=== PATIENT | female | born 1950 | race Caucasian/White ===

== ENCOUNTER 2021-09-04 21:18 | Inpatient (IN) ==
[2021-09-04 22:41] LABS: BUN/Creatinine Ratio 8 (6-26); Blood Urea Nitrogen 6 mg/dL (8-23); Calcium 9.3 mg/dL (8.6-10.3); Carbon Dioxide 24 mEq/L (23-29); Chloride 98 mEq/L (98-107); Glucose 155 mg/dL (70-105); Osmolality,Calculated 283 (280-300); Sodium 136 mEq/L (136-145); eGFR For African Americans > 60 (> 60); eGFR For Non-African Americans > 60 (> 60)
[2021-09-04 22:42] LABS: Troponin I 0.03 ng/mL (< 0.04)
[2021-09-04] MEDS ORDERED: methylPREDNISolone 125 MG/2 ML VIAL IVP ONE (23:12)
[2021-09-04] MEDS ORDERED: Ipratropium/Albuterol Neb 3 ML IH ONE (23:12)
[2021-09-04 23:26] LABS: Basophils % 0.3 %; Hematocrit 42.1 % (35.3-44.9); Hemoglobin 13.7 g/dL (11.5-15.4); Immature Granulocytes % 0.6 % (0-4); Lymphocytes # 0.9 K/mcL (0.6-4.6); Lymphocytes % 6.4 %; Mean Corpuscular HGB Conc 32.5 g/dL (31.6-35.5); Mean Corpuscular Hemoglobin 28.9 pg (28.0-33.3); Mean Corpuscular Volume 88.8 fL (83.0-100.0); Mean Platelet Volume 10.7 fL (9.4-12.4); Monocytes % 7.4 %; Platelet Count 466 K/mcL (140-400); Red Blood Count 4.74 M/mcL (3.82-4.97); Segmented Neutrophils % 85.3 %; White Blood Count 14.1 K/mcL (4.3-11.1)
[2021-09-04] MEDS: Albuterol 2.5 MG/3 ML NEBULIZER IH ONE (23:42)
[2021-09-04 23:46] LABS: Influenza A PCR Negative (Negative); Influenza B PCR Negative (Negative); Resp. Syncytial Virus PCR Negative (Negative)
[2021-09-04 23:49] LABS: SARS-CoV-2 by PCR (In House) Negative (Negative)
[2021-09-05] MEDS ORDERED: Albuterol 2.5 MG/3 ML NEBULIZER IH ONE (01:15)
[2021-09-05] MEDS ORDERED: Azithromycin 250 MG TABLET PO ONE (01:17)
[2021-09-05] MEDS ORDERED: cefTRIAXone 1,000 MG in Water for inj. (sterile) 10 ML IVP ONE (01:17)
[2021-09-05] MEDS ORDERED: Furosemide 20 MG/2 ML VIAL IVP ONE (02:14)
[2021-09-05] MEDS ORDERED: Acetaminophen 325 MG TABLET PO PRN (02:18)
[2021-09-05] MEDS ORDERED: Melatonin 3 MG TABLET PO PRN (02:18)
[2021-09-05] MEDS ORDERED: Naloxone 0.4 MG/ML INJ IVP PRN (02:18)
[2021-09-05] MEDS ORDERED: Ondansetron 4 MG/2 ML VIAL IVP PRN (02:18)
[2021-09-05] MEDS ORDERED: *HR* HYDROcodone/Acet 5/325 mg TABLET PO PRN (02:18)
[2021-09-05] MEDS: Albuterol 2.5 MG/3 ML NEBULIZER IH ONE (03:36)
[2021-09-05] MEDS: Ipratropium/Albuterol Neb 3 ML IH SCH ×5 (04:22→20:55)
[2021-09-05 04:55] LABS: Basophils % 0.2 %; Hematocrit 36.6 % (35.3-44.9); Hemoglobin 11.8 g/dL (11.5-15.4); Immature Granulocytes % 0.6 % (0-4); Lymphocytes # 0.3 K/mcL (0.6-4.6); Lymphocytes % 2.6 %; Mean Corpuscular HGB Conc 32.2 g/dL (31.6-35.5); Mean Corpuscular Hemoglobin 28.6 pg (28.0-33.3); Mean Corpuscular Volume 88.6 fL (83.0-100.0); Mean Platelet Volume 10.2 fL (9.4-12.4); Monocytes # 0.1 K/mcL (0.0-1.3); Neutrophils # 12.5 K/mcL (1.6-8.9); Platelet Count 403 K/mcL (140-400); Red Blood Count 4.13 M/mcL (3.82-4.97); Red Cell Distribution Width 12.1 % (11.5-14.5); Segmented Neutrophils % 95.6 %; White Blood Count 13.1 K/mcL (4.3-11.1)
[2021-09-05 04:57] LABS: VBG HCO3 24 mEq/L (21-27); VBG PCO2 35 mmHg (41-51); VBG PH 7.44 pH Units (7.32-7.42); VBG PO2 86 mmHg (25-50)
[2021-09-05 05:16] LABS: Alanine Aminotransferase 52 Units/L (7-52); Albumin 3.7 g/dL (3.5-5.7); Alkaline Phosphatase 126 Units/L (34-104); Aspartate Amino Transferase 48 Units/L (13-39); BUN/Creatinine Ratio 8 (6-26); Bilirubin,Total 0.6 mg/dL (0.3-1.0); Blood Urea Nitrogen 7 mg/dL (8-23); Calcium 8.8 mg/dL (8.6-10.3); Carbon Dioxide 24 mEq/L (23-29); Chloride 100 mEq/L (98-107); Globulin 3.6 g/dL (2.4-3.5); Glucose 283 mg/dL (70-105); Magnesium 2.1 mg/dL (1.6-2.6); Osmolality,Calculated 284 (280-300); Phosphorous 2.4 mg/dL (2.7-4.5); Sodium 133 mEq/L (136-145); Total Protein 7.3 g/dL (6.4-8.9); Troponin I 0.03 ng/mL (< 0.04); eGFR For African Americans > 60 (> 60); eGFR For Non-African Americans > 60 (> 60)
[2021-09-05] MEDS: methylPREDNISolone 125 MG/2 ML VIAL IVP SCH ×3 (05:25→20:13)
[2021-09-05] MEDS ORDERED: *HR* LORazepam 0.5 MG TABLET PO ONE (05:50)
[2021-09-05 05:52] LABS: Platelet Estimate Normal (Normal)
[2021-09-05] MEDS ORDERED: Isovue-370 500 ML BOTTLE IVP ONE (05:57)
[2021-09-05] MEDS ORDERED: methylPREDNISolone 125 MG/2 ML VIAL IVP SCH (06:00)
[2021-09-05] MEDS: *HR* Heparin 5,000 UNIT/ML VIAL SQ SCH ×3 (06:15→20:13)
[2021-09-05] MEDS ORDERED: Ringers Solution, Lactated 500 ML IVC ONE (06:30)
[2021-09-05 06:46] LABS: ABG Base Excess 0 mEq/L (-2 to 3); ABG HCO3 24 mEq/L (21-27); ABG Oxygen Saturation 99 % (95-98); ABG PCO2 34 mmHg (35-45); ABG PH 7.46 pH Units (7.32-7.45); ABG PO2 108 mmHg (85-104); ABG TCO2 25 mEq/L (20-26)
[2021-09-05 07:47] LABS: Adenovirus Not Detected (Not Detect); Bordetella Pertussis Not Detected (Not Detect); Chlamydophila pneumoniae Not Detected (Not Detect); Coronavirus 229E Not Detected (Not Detect); Coronavirus HKU1 Not Detected (Not Detect); Coronavirus NL63 Not Detected (Not Detect); Coronavirus OC43 Not Detected (Not Detect); Human Metapneumovirus Not Detected (Not Detect); Human Rhinovirus/Enterovirus Not Detected (Not Detect); Influenza A Subtype 2009 H1 Not Detected (Not Detect); Influenza B Not Detected (Not Detect); Mycoplasma pneumoniae Not Detected (Not Detect); Parainfluenza Virus 1 Not Detected (Not Detect); Parainfluenza Virus 2 Not Detected (Not Detect); Parainfluenza Virus 3 Not Detected (Not Detect); Parainfluenza Virus 4 Not Detected (Not Detect); Respiratory Syncytial Virus Not Detected (Not Detect); SARS-CoV-2 Not Detected (Not Detect)
[2021-09-05] MEDS: Budesonide/Formoterol 160/4.5 1 PUFF INH IH SCH ×2 (08:10→20:55)
[2021-09-05] MEDS: Lactobacillus 1 EACH CAP.SPRINK PO SCH ×2 (08:27→20:13)
[2021-09-05] MEDS: Fluticasone Propionate Nasal 50 MCG/SPRAY BOTTLE NS SCH (08:27)
[2021-09-05] MEDS: Chlorhexidine Rinse 15 ML MOUTHWASH MM SCH ×2 (08:27→20:13)
[2021-09-05] MEDS: Multivit/Ca/Min/Fe/FA 1 TAB TABLET PO SCH (08:27)
[2021-09-05] MEDS: Artificial Tears SOLN 15 ML BOTTLE BOTH EYES SCH ×4 (08:36→20:12)
[2021-09-05] MEDS: Insulin LISPRO 300 UNITS/3 ML VIAL SUBQ SCH ×3 (08:44→18:09)
[2021-09-05] MEDS ORDERED: amLODIPine 5 MG TABLET PO SCH (09:00)
[2021-09-05 10:26] LABS: Estimated Average Glucose 131 mg/dl; Hemoglobin A1C 6.2 %
[2021-09-05] MEDS: Saline Nasal Spray 44 ML BOTTLE NS SCH ×4 (10:39→20:13)
[2021-09-05] MEDS: Saliva Stimulant 44.3ml BOTTLE PO SCH ×4 (10:39→20:12)
[2021-09-06] MEDS: Ipratropium/Albuterol Neb 3 ML IH SCH ×7 (00:08→23:28)
[2021-09-06] MEDS: methylPREDNISolone 125 MG/2 ML VIAL IVP SCH ×3 (05:14→20:05)
[2021-09-06] MEDS: *HR* Heparin 5,000 UNIT/ML VIAL SQ SCH ×3 (05:14→20:06)
[2021-09-06 07:04] LABS: Hematocrit 34.6 % (35.3-44.9); Mean Corpuscular HGB Conc 32.4 g/dL (31.6-35.5); Mean Corpuscular Hemoglobin 28.5 pg (28.0-33.3); Mean Platelet Volume 10.9 fL (9.4-12.4); Platelet Count 330 K/mcL (140-400); Red Blood Count 3.93 M/mcL (3.82-4.97); Red Cell Distribution Width 12.5 % (11.5-14.5)
[2021-09-06 07:06] LABS: VBG HCO3 25 mEq/L (21-27); VBG PCO2 30 mmHg (41-51); VBG PH 7.52 pH Units (7.32-7.42); VBG PO2 193 mmHg (25-50)
[2021-09-06 07:34] LABS: BUN/Creatinine Ratio 23 (6-26); Blood Urea Nitrogen 16 mg/dL (8-23); Calcium 9.1 mg/dL (8.6-10.3); Carbon Dioxide 24 mEq/L (23-29); Chloride 108 mEq/L (98-107); Glucose 185 mg/dL (70-105); Magnesium 2.3 mg/dL (1.6-2.6); Osmolality,Calculated 288 (280-300); Potassium 4.1 mEq/L (3.5-5.1); Sodium 136 mEq/L (136-145); eGFR For African Americans > 60 (> 60); eGFR For Non-African Americans > 60 (> 60)
[2021-09-06 07:52] LABS: Hemoglobin 11.2 g/dL (11.5-15.4); White Blood Count 26.5 K/mcL (4.3-11.1)
[2021-09-06 07:58] LABS: Lymphocytes # 0.5 K/mcL (0.6-4.6); Platelet Estimate Normal (Normal)
[2021-09-06] MEDS: Insulin LISPRO 300 UNITS/3 ML VIAL SUBQ SCH ×3 (09:20→18:14)
[2021-09-06] MEDS: Saline Nasal Spray 44 ML BOTTLE NS SCH ×4 (09:23→20:05)
[2021-09-06] MEDS: Saliva Stimulant 44.3ml BOTTLE PO SCH ×4 (09:23→20:04)
[2021-09-06] MEDS: Artificial Tears SOLN 15 ML BOTTLE BOTH EYES SCH ×4 (09:23→20:05)
[2021-09-06] MEDS: Lactobacillus 1 EACH CAP.SPRINK PO SCH ×2 (09:24→20:05)
[2021-09-06] MEDS: Azithromycin 250 MG TABLET PO SCH (09:24)
[2021-09-06] MEDS: Multivit/Ca/Min/Fe/FA 1 TAB TABLET PO SCH (09:24)
[2021-09-06] MEDS: Chlorhexidine Rinse 15 ML MOUTHWASH MM SCH ×2 (09:24→20:05)
[2021-09-06] MEDS: amLODIPine 5 MG TABLET PO SCH (09:24)
[2021-09-06] MEDS: Fluticasone Propionate Nasal 50 MCG/SPRAY BOTTLE NS SCH (09:24)
[2021-09-06] MEDS: cefTRIAXone 1,000 MG in 0.9 % Sodium Chloride Mini Bag 100 ML IVPB SCH (09:25)
[2021-09-06] MEDS: Budesonide/Formoterol 160/4.5 1 PUFF INH IH SCH ×2 (10:30→20:24)
[2021-09-07 02:06] LABS: VBG HCO3 22 mEq/L (21-27); VBG PCO2 24 mmHg (41-51); VBG PH 7.57 pH Units (7.32-7.42); VBG PO2 189 mmHg (25-50)
[2021-09-07 02:09] LABS: Basophils % 0.2 %; Monocytes % 1.4 %
[2021-09-07 02:10] LABS: Basophils # 0.1 K/mcL (0.0-0.2); Hematocrit 34.2 % (35.3-44.9); Immature Granulocytes % 1.3 % (0-4); Lymphocytes # 0.7 K/mcL (0.6-4.6); Lymphocytes % 2.8 %; Mean Corpuscular HGB Conc 32.2 g/dL (31.6-35.5); Mean Corpuscular Hemoglobin 29.4 pg (28.0-33.3); Mean Corpuscular Volume 91.4 fL (83.0-100.0); Mean Platelet Volume 10.1 fL (9.4-12.4); Monocytes # 0.4 K/mcL (0.0-1.3); Neutrophils # 24.7 K/mcL (1.6-8.9); Platelet Count 431 K/mcL (140-400); Red Blood Count 3.74 M/mcL (3.82-4.97); Red Cell Distribution Width 12.9 % (11.5-14.5); Segmented Neutrophils % 94.3 %; White Blood Count 26.2 K/mcL (4.3-11.1)
[2021-09-07 02:23] LABS: BUN/Creatinine Ratio 30 (6-26); Blood Urea Nitrogen 21 mg/dL (8-23); Calcium 8.8 mg/dL (8.6-10.3); Carbon Dioxide 24 mEq/L (23-29); Chloride 105 mEq/L (98-107); Glucose 180 mg/dL (70-105); Magnesium 2.3 mg/dL (1.6-2.6); Osmolality,Calculated 294 (280-300); Sodium 138 mEq/L (136-145); eGFR For African Americans > 60 (> 60); eGFR For Non-African Americans > 60 (> 60)
[2021-09-07] MEDS: Ipratropium/Albuterol Neb 3 ML IH SCH ×6 (04:08→23:40)
[2021-09-07] MEDS: methylPREDNISolone 125 MG/2 ML VIAL IVP SCH (05:14)
[2021-09-07] MEDS: *HR* Heparin 5,000 UNIT/ML VIAL SQ SCH ×3 (05:14→21:51)
[2021-09-07] MEDS: Budesonide/Formoterol 160/4.5 1 PUFF INH IH SCH ×2 (08:13→20:36)
[2021-09-07] MEDS: Insulin LISPRO 300 UNITS/3 ML VIAL SUBQ SCH ×3 (08:23→16:55)
[2021-09-07] MEDS: Artificial Tears SOLN 15 ML BOTTLE BOTH EYES SCH ×4 (08:23→19:45)
[2021-09-07] MEDS: Saline Nasal Spray 44 ML BOTTLE NS SCH ×4 (08:24→19:46)
[2021-09-07] MEDS: Chlorhexidine Rinse 15 ML MOUTHWASH MM SCH ×2 (08:24→21:52)
[2021-09-07] MEDS: Saliva Stimulant 44.3ml BOTTLE PO SCH ×4 (08:24→19:45)
[2021-09-07] MEDS: Fluticasone Propionate Nasal 50 MCG/SPRAY BOTTLE NS SCH (08:24)
[2021-09-07] MEDS: cefTRIAXone 1,000 MG in 0.9 % Sodium Chloride Mini Bag 100 ML IVPB SCH (08:25)
[2021-09-07] MEDS: Multivit/Ca/Min/Fe/FA 1 TAB TABLET PO SCH (08:25)
[2021-09-07] MEDS: Azithromycin 250 MG TABLET PO SCH (08:25)
[2021-09-07] MEDS: amLODIPine 5 MG TABLET PO SCH (08:25)
[2021-09-07] MEDS: Lactobacillus 1 EACH CAP.SPRINK PO SCH ×2 (08:25→21:52)
[2021-09-07] MEDS: MethylPREDNISolone 40 MG/ML VIAL IVP SCH ×2 (11:20→19:46)
[2021-09-08 01:50] LABS: Basophils # 0.1 K/mcL (0.0-0.2); Basophils % 0.3 %; Hematocrit 35.6 % (35.3-44.9); Hemoglobin 11.5 g/dL (11.5-15.4); Immature Granulocytes % 3.9 % (0-4); Lymphocytes # 0.7 K/mcL (0.6-4.6); Lymphocytes % 3.2 %; Mean Corpuscular HGB Conc 32.3 g/dL (31.6-35.5); Mean Corpuscular Hemoglobin 29.2 pg (28.0-33.3); Mean Corpuscular Volume 90.4 fL (83.0-100.0); Mean Platelet Volume 9.7 fL (9.4-12.4); Monocytes # 0.7 K/mcL (0.0-1.3); Monocytes % 2.9 %; Neutrophils # 20.8 K/mcL (1.6-8.9); Platelet Count 439 K/mcL (140-400); Red Blood Count 3.94 M/mcL (3.82-4.97); Red Cell Distribution Width 12.8 % (11.5-14.5); Segmented Neutrophils % 89.7 %; White Blood Count 23.2 K/mcL (4.3-11.1)
[2021-09-08 01:59] LABS: VBG HCO3 24 mEq/L (21-27); VBG PCO2 21 mmHg (41-51); VBG PH 7.65 pH Units (7.32-7.42); VBG PO2 196 mmHg (25-50)
[2021-09-08 03:04] LABS: BUN/Creatinine Ratio 29 (6-26); Blood Urea Nitrogen 18 mg/dL (8-23); Calcium 8.9 mg/dL (8.6-10.3); Carbon Dioxide 21 mEq/L (23-29); Chloride 104 mEq/L (98-107); Glucose 168 mg/dL (70-105); Osmolality,Calculated 294 (280-300); Potassium 4.3 mEq/L (3.5-5.1); Sodium 139 mEq/L (136-145); eGFR For African Americans > 60 (> 60); eGFR For Non-African Americans > 60 (> 60)
[2021-09-08] MEDS: MethylPREDNISolone 40 MG/ML VIAL IVP SCH (03:04)
[2021-09-08] MEDS: Ipratropium/Albuterol Neb 3 ML IH SCH ×5 (04:01→20:22)
[2021-09-08] MEDS: *HR* Heparin 5,000 UNIT/ML VIAL SQ SCH ×3 (05:35→21:43)
[2021-09-08] MEDS: Budesonide/Formoterol 160/4.5 1 PUFF INH IH SCH ×2 (08:24→20:22)
[2021-09-08] MEDS: Lactobacillus 1 EACH CAP.SPRINK PO SCH ×2 (08:38→21:42)
[2021-09-08] MEDS: Multivit/Ca/Min/Fe/FA 1 TAB TABLET PO SCH (08:38)
[2021-09-08] MEDS: amLODIPine 5 MG TABLET PO SCH (08:39)
[2021-09-08] MEDS: Azithromycin 250 MG TABLET PO SCH (08:39)
[2021-09-08] MEDS: cefTRIAXone 1,000 MG in 0.9 % Sodium Chloride Mini Bag 100 ML IVPB SCH (08:40)
[2021-09-08] MEDS: Insulin LISPRO 300 UNITS/3 ML VIAL SUBQ SCH ×3 (08:44→17:21)
[2021-09-08] MEDS: Fluticasone Propionate Nasal 50 MCG/SPRAY BOTTLE NS SCH (08:45)
[2021-09-08] MEDS: Saline Nasal Spray 44 ML BOTTLE NS SCH ×4 (08:45→21:40)
[2021-09-08] MEDS: Artificial Tears SOLN 15 ML BOTTLE BOTH EYES SCH ×4 (08:45→21:39)
[2021-09-08] MEDS: Saliva Stimulant 44.3ml BOTTLE PO SCH ×4 (08:45→21:39)
[2021-09-08] MEDS: Chlorhexidine Rinse 15 ML MOUTHWASH MM SCH ×2 (08:46→21:42)
[2021-09-08] MEDS ORDERED: MethylPREDNISolone 40 MG/ML VIAL IVP ONE (15:00)
[2021-09-09] MEDS: Ipratropium/Albuterol Neb 3 ML IH SCH ×5 (00:27→15:37)
[2021-09-09 05:42] LABS: Basophils # 0.1 K/mcL (0.0-0.2); Basophils % 0.6 %; Hematocrit 35.9 % (35.3-44.9); Hemoglobin 11.6 g/dL (11.5-15.4); Immature Granulocytes % 6.3 % (0-4); Lymphocytes # 2.4 K/mcL (0.6-4.6); Lymphocytes % 12.7 %; Mean Corpuscular HGB Conc 32.3 g/dL (31.6-35.5); Mean Corpuscular Hemoglobin 29.1 pg (28.0-33.3); Mean Platelet Volume 9.7 fL (9.4-12.4); Monocytes # 1.2 K/mcL (0.0-1.3); Monocytes % 6.3 %; Platelet Count 449 K/mcL (140-400); Red Blood Count 3.99 M/mcL (3.82-4.97); Red Cell Distribution Width 12.8 % (11.5-14.5); Segmented Neutrophils % 74.1 %; White Blood Count 18.9 K/mcL (4.3-11.1)
[2021-09-09 05:48] LABS: VBG HCO3 29 mEq/L (21-27); VBG PCO2 36 mmHg (41-51); VBG PH 7.51 pH Units (7.32-7.42); VBG PO2 143 mmHg (25-50)
[2021-09-09] MEDS: *HR* Heparin 5,000 UNIT/ML VIAL SQ SCH (05:56)
[2021-09-09 05:59] LABS: BUN/Creatinine Ratio 27 (6-26); Blood Urea Nitrogen 19 mg/dL (8-23); Calcium 8.6 mg/dL (8.6-10.3); Carbon Dioxide 28 mEq/L (23-29); Chloride 101 mEq/L (98-107); Glucose 104 mg/dL (70-105); Osmolality,Calculated 287 (280-300); Potassium 3.7 mEq/L (3.5-5.1); Sodium 137 mEq/L (136-145); eGFR For African Americans > 60 (> 60); eGFR For Non-African Americans > 60 (> 60)
[2021-09-09] MEDS: Budesonide/Formoterol 160/4.5 1 PUFF INH IH SCH (07:40)
[2021-09-09] MEDS: Insulin LISPRO 300 UNITS/3 ML VIAL SUBQ SCH ×2 (08:07→12:39)
[2021-09-09] MEDS: Artificial Tears SOLN 15 ML BOTTLE BOTH EYES SCH ×2 (08:08→12:40)
[2021-09-09] MEDS: Saliva Stimulant 44.3ml BOTTLE PO SCH ×2 (08:09→12:41)
[2021-09-09] MEDS: Chlorhexidine Rinse 15 ML MOUTHWASH MM SCH (08:09)
[2021-09-09] MEDS: Fluticasone Propionate Nasal 50 MCG/SPRAY BOTTLE NS SCH (08:09)
[2021-09-09] MEDS: cefTRIAXone 1,000 MG in 0.9 % Sodium Chloride Mini Bag 100 ML IVPB SCH (08:09)
[2021-09-09] MEDS: Azithromycin 250 MG TABLET PO SCH (08:10)
[2021-09-09] MEDS: Lactobacillus 1 EACH CAP.SPRINK PO SCH (08:10)
[2021-09-09] MEDS: Multivit/Ca/Min/Fe/FA 1 TAB TABLET PO SCH (08:10)
[2021-09-09] MEDS: Saline Nasal Spray 44 ML BOTTLE NS SCH ×2 (08:29→12:40)
[2021-09-09] MEDS: amLODIPine 5 MG TABLET PO SCH (08:31)
[2021-09-09] MEDS ORDERED: MethylPREDNISolone 40 MG/ML VIAL IVP SCH (09:00)
[2021-09-09 16:51] VITALS: BP 134/67; PULSE 103; TEMP 98; O2SAT 96
== END 2021-09-09 19:50 | disposition home or self-care (01) | DRG 720 ==
LOC: EMEROOARM 21:18 → 3ANU 21:18 → SUATTDRO 09-05 02:06 → 3ANU 09-05 02:44
PROVIDERS: ADMIT Internal Medicine; ATTEND Internal Medicine

== ENCOUNTER 2021-12-08 00:54 | Inpatient (IN) ==
[2021-12-08] MEDS ORDERED: Ibuprofen 800 MG TABLET PO ONE (02:13)
[2021-12-08 02:41] LABS: Basophils # 0.1 K/mcL (0.0-0.2); Basophils % 0.2 %; Hematocrit 38.6 % (35.3-44.9); Hemoglobin 12.9 g/dL (11.5-15.4); Immature Granulocytes % 1.1 % (0-4); Lymphocytes # 1.1 K/mcL (0.6-4.6); Mean Corpuscular HGB Conc 33.4 g/dL (31.6-35.5); Mean Corpuscular Hemoglobin 29.5 pg (28.0-33.3); Mean Corpuscular Volume 88.1 fL (83.0-100.0); Mean Platelet Volume 11.7 fL (9.4-12.4); Monocytes # 1.8 K/mcL (0.0-1.3); Monocytes % 8.5 %; Platelet Count 201 K/mcL (140-400); Red Blood Count 4.38 M/mcL (3.82-4.97); Red Cell Distribution Width 13.7 % (11.5-14.5); Segmented Neutrophils % 85.2 %; White Blood Count 21.2 K/mcL (4.3-11.1)
[2021-12-08] MEDS ORDERED: Azithromycin 500 MG in 0.9 % Sodium Chloride 250 ML IVPB ONE (02:43)
[2021-12-08] MEDS ORDERED: cefTRIAXone 1,000 MG in Water for inj. (sterile) 10 ML IVP ONE (02:43)
[2021-12-08 02:56] LABS: BUN/Creatinine Ratio 15 (6-26); Blood Urea Nitrogen 13 mg/dL (8-23); Calcium 9.7 mg/dL (8.6-10.3); Carbon Dioxide 24 mEq/L (23-29); Chloride 96 mEq/L (98-107); Glucose 95 mg/dL (70-105); Osmolality,Calculated 278 (280-300); Potassium 3.6 mEq/L (3.5-5.1); Sodium 134 mEq/L (136-145); eGFR For African Americans > 60 (> 60); eGFR For Non-African Americans > 60 (> 60)
[2021-12-08 02:59] LABS: Troponin I 0.06 ng/mL (< 0.04)
[2021-12-08] MEDS ORDERED: 0.9 % Sodium Chloride 1,000 ML IVC ONE (03:03)
[2021-12-08 03:33] LABS: Influenza A PCR Negative (Negative); Influenza B PCR Negative (Negative); Resp. Syncytial Virus PCR Negative (Negative)
[2021-12-08 03:34] LABS: SARS-CoV-2 by PCR (In House) Negative (Negative)
[2021-12-08 04:08] LABS: Bacteria,Urine Few per hpf (None-Few); Bilirubin,Urine Negative (Negative); Blood,Urine Small (Negative); Clarity,Urine Clear (Clear); Color,Urine Yellow (Yellow); Glucose,Urine (UA) Normal (Normal); Ketones,Urine 20 mg/dL (Negative); Leukocyte Esterase,Urine Negative (Negative); Mucus,Urine Few per lpf (None-Few); Nitrite,Urine Negative (Negative); Protein,Urine 200 mg/dL (Neg-Trace); Specific Gravity,Urine 1.028 (1.010-1.025); Squamous Epithelial Cell,Urine Few per hpf (None-Few)
[2021-12-08] MEDS ORDERED: Perflutren Lipid Microsphere 1.3 ML in 0.9 % Sodium Chloride 8.7 ML IVP PRN (04:28)
[2021-12-08] MEDS ORDERED: Naloxone 0.4 MG/ML INJ IVP PRN (04:40)
[2021-12-08] MEDS: Aspirin 325 MG TABLET PO ONE ×2 (04:51→05:00)
[2021-12-08] MEDS: *HR* Heparin 5,000 UNIT/ML VIAL SQ SCH ×3 (05:42→20:41)
[2021-12-08] MEDS: 0.9 % Sodium Chloride 1,000 ML IVC SCH ×2 (05:43→15:40)
[2021-12-08] MEDS: Levalbuterol Neb 1.25 MG/3 ML IH SCH ×4 (05:55→20:01)
[2021-12-08 06:01] LABS: Troponin I < 0.03 ng/mL (< 0.04)
[2021-12-08] MEDS: Acetaminophen 325 MG TABLET PO PRN ×2 (06:09→18:08)
[2021-12-08] MEDS ORDERED: Nitroglycerin 0.4 MG TAB.SUBL SL PRN (06:19)
[2021-12-08] MEDS: Aspirin Enteric Coated 81 MG Tablet PO SCH (08:48)
[2021-12-08] MEDS: amLODIPine 5 MG TABLET PO SCH (08:51)
[2021-12-08 09:05] LABS: Magnesium 1.9 mg/dL (1.6-2.6); Phosphorous 3.4 mg/dL (2.7-4.5)
[2021-12-08] MEDS ORDERED: methylPREDNISolone 125 MG/2 ML VIAL IVP ONE (18:05)
[2021-12-09] MEDS: Levalbuterol Neb 1.25 MG/3 ML IH SCH ×4 (04:05→19:44)
[2021-12-09] MEDS: cefTRIAXone 1,000 MG in 0.9 % Sodium Chloride 10 ML IVPB SCH (04:53)
[2021-12-09] MEDS: *HR* Heparin 5,000 UNIT/ML VIAL SQ SCH ×3 (04:54→19:58)
[2021-12-09] MEDS: Azithromycin 500 MG in 0.9 % Sodium Chloride 250 ML IVPB SCH (04:59)
[2021-12-09] MEDS: amLODIPine 5 MG TABLET PO SCH (08:23)
[2021-12-09] MEDS: Aspirin Enteric Coated 81 MG Tablet PO SCH (08:24)
[2021-12-09 09:48] LABS: Red Cell Distribution Width 14.2 % (11.5-14.5)
[2021-12-09 09:50] LABS: Hemoglobin 11.4 g/dL (11.5-15.4); Mean Corpuscular HGB Conc 34.5 g/dL (31.6-35.5); Mean Corpuscular Hemoglobin 30.2 pg (28.0-33.3); Mean Corpuscular Volume 87.5 fL (83.0-100.0); Mean Platelet Volume 11.7 fL (9.4-12.4); Platelet Count 254 K/mcL (140-400); Red Blood Count 3.77 M/mcL (3.82-4.97); White Blood Count 27.4 K/mcL (4.3-11.1)
[2021-12-09 10:09] LABS: BUN/Creatinine Ratio 19 (6-26); Blood Urea Nitrogen 12 mg/dL (8-23); Calcium 9.6 mg/dL (8.6-10.3); Carbon Dioxide 20 mEq/L (23-29); Chloride 107 mEq/L (98-107); Chol/HDL Ratio 2.4 (0-4.9); Cholesterol 97 mg/dL (< 200); Glucose 221 mg/dL (70-105); HDL Cholesterol 40 mg/dL (40-59); LDL Cholesterol,Calculated 40 mg/dL (< 100); Osmolality,Calculated 295 (280-300); Potassium 2.9 mEq/L (3.5-5.1); Sodium 139 mEq/L (136-145); Triglycerides 83 mg/dL (< 150); eGFR For African Americans > 60 (> 60); eGFR For Non-African Americans > 60 (> 60)
[2021-12-09 10:26] LABS: Estimated Average Glucose 123 mg/dl; Hemoglobin A1C 5.9 %
[2021-12-09 10:36] LABS: Lymphocytes # 1.6 K/mcL (0.6-4.6); Monocytes # 0.6 K/mcL (0.0-1.3); Neutrophils # 25.2 K/mcL (1.6-8.9); Platelet Estimate Normal (Normal)
[2021-12-09] MEDS ORDERED: NON-FORMULARY MEDICATION 1 EACH EACH (Fluticasone/Vilanterol [Breo Ellipta 200-25 Mcg Inh] PO SCH (11:30)
[2021-12-09] MEDS ORDERED: amLODIPine 5 MG TABLET PO ONE (12:17)
[2021-12-09] MEDS: predniSONE 20 MG TABLET PO SCH (12:31)
[2021-12-09] MEDS: Fluticasone Propionate Nasal 50 MCG/SPRAY BOTTLE NS SCH (12:31)
[2021-12-09] MEDS: Acetaminophen 325 MG TABLET PO PRN (12:35)
[2021-12-09 14:48] LABS: ABG Base Excess -4 mEq/L (-2 to 3); ABG HCO3 19 mEq/L (21-27); ABG Oxygen Saturation 95 % (95-98); ABG PCO2 28 mmHg (35-45); ABG PH 7.45 pH Units (7.32-7.45); ABG PO2 72 mmHg (85-104); ABG TCO2 20 mEq/L (20-26)
[2021-12-09] MEDS ORDERED: *HR* Metoprolol 5 MG/5 ML VIAL IVP ONE (19:33)
[2021-12-09] MEDS: Budesonide/Formoterol 160/4.5 1 PUFF INH IH SCH (19:44)
[2021-12-10] MEDS: Levalbuterol Neb 1.25 MG/3 ML IH SCH ×4 (03:22→19:20)
[2021-12-10] MEDS: *HR* Heparin 5,000 UNIT/ML VIAL SQ SCH ×3 (05:16→21:02)
[2021-12-10] MEDS: cefTRIAXone 1,000 MG in 0.9 % Sodium Chloride 10 ML IVPB SCH (05:16)
[2021-12-10] MEDS: Azithromycin 500 MG in 0.9 % Sodium Chloride 250 ML IVPB SCH (05:17)
[2021-12-10 06:54] LABS: BUN/Creatinine Ratio 22 (6-26); Blood Urea Nitrogen 15 mg/dL (8-23); Calcium 9.7 mg/dL (8.6-10.3); Carbon Dioxide 20 mEq/L (23-29); Chloride 109 mEq/L (98-107); Glucose 166 mg/dL (70-105); Osmolality,Calculated 299 (280-300); Potassium 3.3 mEq/L (3.5-5.1); Sodium 142 mEq/L (136-145); eGFR For African Americans > 60 (> 60); eGFR For Non-African Americans > 60 (> 60)
[2021-12-10] MEDS: Budesonide/Formoterol 160/4.5 1 PUFF INH IH SCH ×2 (07:55→19:20)
[2021-12-10 08:21] LABS: Magnesium 2.1 mg/dL (1.6-2.6); Phosphorous 3.1 mg/dL (2.7-4.5)
[2021-12-10] MEDS: amLODIPine 5 MG TABLET PO SCH (08:23)
[2021-12-10] MEDS ORDERED: *HR* Metoprolol 5 MG/5 ML VIAL IVP ONE (08:25)
[2021-12-10] MEDS: Aspirin Enteric Coated 81 MG Tablet PO SCH (08:25)
[2021-12-10] MEDS: predniSONE 20 MG TABLET PO SCH (08:25)
[2021-12-10] MEDS: Fluticasone Propionate Nasal 50 MCG/SPRAY BOTTLE NS SCH (08:26)
[2021-12-10 08:38] LABS: Lymphocytes % 3.1 %
[2021-12-10 08:40] LABS: Basophils # 0.1 K/mcL (0.0-0.2); Basophils % 0.3 %; Hematocrit 33.6 % (35.3-44.9); Hemoglobin 11.1 g/dL (11.5-15.4); Immature Granulocytes % 3.8 % (0-4); Mean Corpuscular Hemoglobin 29.4 pg (28.0-33.3); Mean Corpuscular Volume 88.9 fL (83.0-100.0); Mean Platelet Volume 11.6 fL (9.4-12.4); Monocytes # 1.9 K/mcL (0.0-1.3); Monocytes % 5.9 %; Platelet Count 319 K/mcL (140-400); Red Blood Count 3.78 M/mcL (3.82-4.97); Red Cell Distribution Width 14.5 % (11.5-14.5); Segmented Neutrophils % 86.9 %
[2021-12-10 08:44] LABS: Neutrophils # 28.2 K/mcL (1.6-8.9)
[2021-12-10] MEDS ORDERED: MethylPREDNISolone 40 MG/ML VIAL IM ONE (08:44)
[2021-12-10 08:45] LABS: White Blood Count 32.5 K/mcL (4.3-11.1)
[2021-12-10 08:47] LABS: Platelet Estimate Normal (Normal)
[2021-12-10 09:01] LABS: ABG Base Excess 2 mEq/L (-2 to 3); ABG HCO3 25 mEq/L (21-27); ABG Oxygen Saturation 95 % (95-98); ABG PCO2 32 mmHg (35-45); ABG PH 7.51 pH Units (7.32-7.45); ABG PO2 65 mmHg (85-104); ABG TCO2 26 mEq/L (20-26)
[2021-12-10] MEDS: MethylPREDNISolone 40 MG/ML VIAL IVP SCH ×2 (09:02→16:01)
[2021-12-10] MEDS ORDERED: *HR* LORazepam 2 MG/ML VIAL IVP ONE (09:19)
[2021-12-10] MEDS: Piperacillin/Tazobactam 3.375 GM in 0.9 % Sodium Chloride Mini Bag 100 ML IVPB SCH ×2 (10:53→16:57)
[2021-12-10] MEDS ORDERED: Furosemide 20 MG/2 ML VIAL IVP ONE (11:40)
[2021-12-10 11:44] LABS: ABG Base Excess 3 mEq/L (-2 to 3); ABG HCO3 26 mEq/L (21-27); ABG Oxygen Saturation 98 % (95-98); ABG PCO2 31 mmHg (35-45); ABG PH 7.53 pH Units (7.32-7.45); ABG PO2 86 mmHg (85-104); ABG TCO2 26 mEq/L (20-26)
[2021-12-10] MEDS ORDERED: Levalbuterol Neb 1.25 MG/3 ML IH ONE (12:59)
[2021-12-11] MEDS: MethylPREDNISolone 40 MG/ML VIAL IVP SCH ×3 (00:13→15:47)
[2021-12-11] MEDS: Piperacillin/Tazobactam 3.375 GM in 0.9 % Sodium Chloride Mini Bag 100 ML IVPB SCH ×3 (01:57→17:25)
[2021-12-11] MEDS: Levalbuterol Neb 1.25 MG/3 ML IH SCH ×4 (03:50→20:22)
[2021-12-11 05:34] LABS: Basophils # 0.1 K/mcL (0.0-0.2); Basophils % 0.5 %; Hematocrit 32.1 % (35.3-44.9); Hemoglobin 10.2 g/dL (11.5-15.4); Immature Granulocytes % 4.4 % (0-4); Lymphocytes # 0.7 K/mcL (0.6-4.6); Lymphocytes % 4.2 %; Mean Corpuscular HGB Conc 31.8 g/dL (31.6-35.5); Mean Corpuscular Hemoglobin 28.8 pg (28.0-33.3); Mean Corpuscular Volume 90.7 fL (83.0-100.0); Mean Platelet Volume 12.2 fL (9.4-12.4); Monocytes # 0.6 K/mcL (0.0-1.3); Monocytes % 3.6 %; Neutrophils # 14.2 K/mcL (1.6-8.9); Platelet Count 242 K/mcL (140-400); Red Blood Count 3.54 M/mcL (3.82-4.97); Red Cell Distribution Width 14.8 % (11.5-14.5); Segmented Neutrophils % 87.3 %; White Blood Count 16.3 K/mcL (4.3-11.1)
[2021-12-11] MEDS: *HR* Heparin 5,000 UNIT/ML VIAL SQ SCH ×3 (05:47→20:55)
[2021-12-11 07:09] LABS: BUN/Creatinine Ratio 31 (6-26); Blood Urea Nitrogen 21 mg/dL (8-23); Calcium 8.7 mg/dL (8.6-10.3); Carbon Dioxide 18 mEq/L (23-29); Chloride 105 mEq/L (98-107); Glucose 167 mg/dL (70-105); Magnesium 2.2 mg/dL (1.6-2.6); Osmolality,Calculated 297 (280-300); Phosphorous 2.6 mg/dL (2.7-4.5); Potassium 3.5 mEq/L (3.5-5.1); Sodium 140 mEq/L (136-145); eGFR For African Americans > 60 (> 60); eGFR For Non-African Americans > 60 (> 60)
[2021-12-11] MEDS: amLODIPine 5 MG TABLET PO SCH (09:04)
[2021-12-11] MEDS: Aspirin Enteric Coated 81 MG Tablet PO SCH (09:04)
[2021-12-11] MEDS: Fluticasone Propionate Nasal 50 MCG/SPRAY BOTTLE NS SCH (09:05)
[2021-12-11] MEDS: Budesonide/Formoterol 160/4.5 1 PUFF INH IH SCH ×2 (09:34→20:23)
[2021-12-11] MEDS ORDERED: *HR* Metoprolol 5 MG/5 ML VIAL IVP ONE (17:17)
[2021-12-11] MEDS: *HR* Metoprolol 5 MG/5 ML VIAL IVP ONE ×2 (17:23→17:24)
[2021-12-12] MEDS: Piperacillin/Tazobactam 3.375 GM in 0.9 % Sodium Chloride Mini Bag 100 ML IVPB SCH ×3 (00:33→17:02)
[2021-12-12] MEDS: MethylPREDNISolone 40 MG/ML VIAL IVP SCH ×3 (00:34→17:02)
[2021-12-12] MEDS: Levalbuterol Neb 1.25 MG/3 ML IH SCH ×4 (03:44→20:47)
[2021-12-12] MEDS: *HR* Heparin 5,000 UNIT/ML VIAL SQ SCH ×3 (05:09→20:44)
[2021-12-12] MEDS: Budesonide/Formoterol 160/4.5 1 PUFF INH IH SCH ×2 (07:28→20:47)
[2021-12-12] MEDS: amLODIPine 5 MG TABLET PO SCH (07:36)
[2021-12-12] MEDS: Aspirin Enteric Coated 81 MG Tablet PO SCH (07:36)
[2021-12-12] MEDS: Fluticasone Propionate Nasal 50 MCG/SPRAY BOTTLE NS SCH (07:37)
[2021-12-13] MEDS: MethylPREDNISolone 40 MG/ML VIAL IVP SCH ×3 (00:32→17:08)
[2021-12-13] MEDS: Piperacillin/Tazobactam 3.375 GM in 0.9 % Sodium Chloride Mini Bag 100 ML IVPB SCH ×3 (00:33→17:08)
[2021-12-13] MEDS: Levalbuterol Neb 1.25 MG/3 ML IH SCH ×4 (03:57→19:30)
[2021-12-13] MEDS: *HR* Heparin 5,000 UNIT/ML VIAL SQ SCH ×3 (05:00→20:20)
[2021-12-13] MEDS: Fluticasone Propionate Nasal 50 MCG/SPRAY BOTTLE NS SCH (09:15)
[2021-12-13] MEDS: Aspirin Enteric Coated 81 MG Tablet PO SCH (09:15)
[2021-12-13] MEDS: amLODIPine 5 MG TABLET PO SCH (09:15)
[2021-12-13] MEDS: Budesonide/Formoterol 160/4.5 1 PUFF INH IH SCH ×2 (10:41→19:30)
[2021-12-13] MEDS: carvediloL 6.25 MG TABLET PO SCH ×2 (13:30→20:20)
[2021-12-13] MEDS ORDERED: Saline Nasal Spray 44 ML BOTTLE NS PRN (20:51)
[2021-12-14] MEDS: Piperacillin/Tazobactam 3.375 GM in 0.9 % Sodium Chloride Mini Bag 100 ML IVPB SCH ×2 (00:54→09:44)
[2021-12-14] MEDS: MethylPREDNISolone 40 MG/ML VIAL IVP SCH ×2 (00:55→10:08)
[2021-12-14 02:27] LABS: Hematocrit 34.2 % (35.3-44.9); Hemoglobin 11.1 g/dL (11.5-15.4); Mean Corpuscular HGB Conc 32.5 g/dL (31.6-35.5); Mean Corpuscular Hemoglobin 28.5 pg (28.0-33.3); Mean Corpuscular Volume 87.7 fL (83.0-100.0); Mean Platelet Volume 10.6 fL (9.4-12.4); Nucleated Red Blood Cells 0.1 /100 WBC (0); Platelet Count 442 K/mcL (140-400); Red Cell Distribution Width 14.5 % (11.5-14.5); White Blood Count 23.2 K/mcL (4.3-11.1)
[2021-12-14 03:08] LABS: BUN/Creatinine Ratio 31 (6-26); Blood Urea Nitrogen 19 mg/dL (8-23); Calcium 8.7 mg/dL (8.6-10.3); Carbon Dioxide 29 mEq/L (23-29); Chloride 100 mEq/L (98-107); Glucose 142 mg/dL (70-105); Osmolality,Calculated 291 (280-300); Potassium 4.1 mEq/L (3.5-5.1); Sodium 138 mEq/L (136-145); eGFR For African Americans > 60 (> 60); eGFR For Non-African Americans > 60 (> 60)
[2021-12-14] MEDS: Levalbuterol Neb 1.25 MG/3 ML IH SCH ×3 (03:24→15:52)
[2021-12-14 03:36] LABS: Lymphocytes # 3.7 K/mcL (0.6-4.6); Monocytes # 0.5 K/mcL (0.0-1.3); Platelet Estimate Increased (Normal)
[2021-12-14] MEDS: *HR* Heparin 5,000 UNIT/ML VIAL SQ SCH (05:22)
[2021-12-14] MEDS: amLODIPine 5 MG TABLET PO SCH (09:42)
[2021-12-14] MEDS: Aspirin Enteric Coated 81 MG Tablet PO SCH (09:42)
[2021-12-14] MEDS: Fluticasone Propionate Nasal 50 MCG/SPRAY BOTTLE NS SCH (09:46)
[2021-12-14 09:57] VITALS: TEMP 97.7
[2021-12-14] MEDS: carvediloL 6.25 MG TABLET PO SCH ×2 (10:07→15:58)
[2021-12-14] MEDS: Budesonide/Formoterol 160/4.5 1 PUFF INH IH SCH (10:57)
[2021-12-14 14:04] VITALS: BP 154/58; PULSE 96; O2SAT 93
== END 2021-12-14 16:27 | disposition home health service (06) | DRG 720 ==
LOC: 3BNU 00:54 → EMEROOARM 00:54 → SUATTDRO 03:42 → 3BNU 05:09 → 2NENU 12-10 15:26
PROVIDERS: ADMIT Internal Medicine; ATTEND Internal Medicine